=== PATIENT | male | born 1955 | race Caucasian/White ===

== ENCOUNTER 2017-04-27 06:49 | Observation (INO) | payer SELFPAY ==
[~2017-04-27] VITALS: Ht 193 cm; Wt 104.2 kg
[~2017-04-27 06:49] MED LIST: MULT-65 PO
[2017-04-27] MEDS ORDERED: SODIUM CHLORID 0.9% 500 ML IV PRN (07:30)
[2017-04-27] MEDS ORDERED: METOPROLOL TARTRATE 25 MG TAB PO PRN (07:30)
[2017-04-27] MEDS ORDERED: INSULIN HUMAN REGULAR 1,000 UNITS/10 ML VIAL SQ PRN (07:30)
[2017-04-27] MEDS ORDERED: LACTATED RINGER'S 1000 ML IV PRN (07:30)
[2017-04-27] MEDS ORDERED: CHLORHEXIDINE GLUCONATE 2 % 1 PACK (2 CLOTHS) TOPICAL PRN (07:30)
[2017-04-27] MEDS ORDERED: POVIDONE IODINE 5% (ANTISEPSIS KIT) 4 APPLICATIONS EACH NARE PRN (07:30)
[2017-04-27] MEDS ORDERED: ceFAZolin 2 GM PREMIX 50 ML IV SCH ×2 (07:30→20:00)
[2017-04-27] MEDS ORDERED: VANCOMYCIN 1000 MG/NS 250 ML (for <70 kg) IV SCH ×2 (07:30)
[2017-04-27] MEDS ORDERED: CHLORHEXIDINE GLUCONATE 4% SOLN 120 ML BTL TOPICAL SCH (07:30)
[2017-04-27] MEDS ORDERED: KETOROLAC TROMETHAMINE 60 MG/2 ML (IM) VIAL IM ONE (10:27)
[2017-04-27] MEDS ORDERED: NEOSTIGMINE 3 MG/3 ML SYR IV ONE (10:27)
[2017-04-27] MEDS ORDERED: ONDANSETRON HCL 4 MG/2 ML VIAL IV PUSH ONE (10:27)
[2017-04-27] MEDS ORDERED: LACTATED RINGER'S 1000 ML INJ 1,000 ML IV ONE (10:27)
[2017-04-27] MEDS ORDERED: MIDAZOLAM HCL 2 MG/2 ML VIAL IV ONE (10:27)
[2017-04-27] MEDS ORDERED: PROPOFOL 200 MG/20 ML AMP IV ONE (10:27)
[2017-04-27] MEDS ORDERED: GENTAMICIN SULFATE 80 MG/2 ML VIAL ONE (10:59)
[2017-04-27] MEDS ORDERED: ACETAMINOPHEN 1000 MG/100 ML 100 ML IV ONE (11:05)
[2017-04-27] MEDS ORDERED: LACTATED RINGER'S 1000 ML INJ 1,000 ML IV SCH (12:23)
[2017-04-27] MEDS ORDERED: HYDR-3366 PO (12:25)
--- NOTE | 2017-04-27 12:28 | PD.OP ---
cc: Harsha Lackey MD Operative Report Date of Surgery: Apr 27, 2017 Preoperative Diagnosis: Displaced left calcaneus fracture Postoperative Diagnosis: Procedure: Open reduction internal fixation left calcaneus Anesthesia: Gen. Surgeon: Harsha Lackey Senior Test Engineer(s): SHADI Esposito PA-C The surgical procedure was assisted by my physician assisted living assistant. My P.A. presence was necessary throughout this case for the manipulation and positioning of the surgical extremity. My P.A. was assisting me throughout the duration of this procedure. The skill set of a physician assisted living assistant was medically necessary to complete this procedure. During the surgical case the java tech was working at the back table and the physician assisted living assistant was directly assisting me. Operation and Findings: Informed consent obtained, operative site was marked. The foot and ankle were seen and evaluated this morning. Soft tissue swelling had significantly improved and appeared to be ready for surgery. He was brought to the operating room and placed on the operating room table. He was given intravenous sedation, general endotracheal anesthesia. He received IV antibiotics and was placed in the lateral decubitus position. Foot and leg were prepped with alcohol, followed by Hibiclens, draped in usual sterile fashion. A time out procedure was preformed. Procedure began with reduction of fracture. Multiple percutaneous incisions were made on each side of fracture. A pointed tenaculum was now placed percutaneously. 2 large pointed tenaculums were used to aid in reduction. The fracture was manipulated. Good reduction was achieved. A was unable to achieve complete anatomic reduction secondary to the delay in injury to surgery. Multiplanar fluoroscopy confirmed well aligned fracture. Additional small incisions were made proximal to the fracture. Guide pins for the [employer] 4.0 cannulated screws were placed across the fracture site from superior to inferior. 4 guidepins were placed. Fluoroscopy confirmed appropriate guidepin placement. Cannulated drill was placed over each of the guidepins. 4 cannulated screws were now placed. Good compression was obtained. Fracture tenaculums were removed. Fluoroscopy confirmed well aligned fracture with well- placed hardware. The skin and subcutaneous tissue closed with 3-0 nylon, in vertical mattress fashion. Sterile dressings were applied the patient was placed into a well molded padded splint. The patient was transferred to the Recovery Room in stable condition. Harsha Lackey MD Apr 27, 2017 12:28
[2017-04-27] MEDS ORDERED: Post-op Orders (for Pharmacy) MISC XX ONE (12:30)
[2017-04-27] MEDS ORDERED: ACETAMINOPHEN/HYDROcodone 325 MG/10 MG TAB PO PRN (12:30)
[2017-04-27] MEDS ORDERED: ONDANSETRON HCL 4 MG/2 ML VIAL IVP PRN (12:30)
[2017-04-27] MEDS ORDERED: diphenhydrAMINE HCL 25 MG CAP PO PRN ×2 (12:30)
[2017-04-27] MEDS ORDERED: SODIUM CHLORIDE 0.9% FLUSH 5 ML FLUSH IVF PRN (12:30)
[2017-04-27] MEDS ORDERED: NALOXONE HCL 0.4 MG/ML AMP IV PRN (12:30)
[2017-04-27] MEDS ORDERED: MORPHINE SULFATE 4 MG/ML INJ IV PUSH PRN (12:30)
[2017-04-27] MEDS ORDERED: DO NOT ADM ANY ANTICOAGULANT DRUGS PRN (12:48)
--- NOTE | 2017-04-27 13:47 | RADRPT ---
EXAM DATE/TIME: 04/27/2017 12:19 [facility] COMPARISON: No previous studies available for comparison. INDICATIONS : Left heel open reduction internal fixation. MEDICAL HISTORY : None. SURGICAL HISTORY : None. ENCOUNTER: Initial ACUITY: 1 day PAIN SCORE: Non-responsive. LOCATION: Left heel FINDINGS: Multiple pins are seen bridging the calcaneal fracture. Alignment is anatomic. CONCLUSION: Anatomic alignment.. Cr Teran MD FACR on April 27, 2017 at 13:45 Board Certified Radiologist. This report was verified electronically.
[2017-04-27 14:30] VITALS: BP 93/65; PULSE 85; RESP 18; TEMP 98; O2SAT 97
[2017-04-27] MEDS ORDERED: SODIUM CHLORIDE 0.9% FLUSH 5 ML FLUSH IVF SCH (21:00)
--- NOTE | 2017-04-27 21:11 | EKG ---
Date Performed: 04/27/2017 Time Performed: 07:26:45 PTAGE: 61 years EKG: SINUS TACHYCARDIA WITH OCCASIONAL SUPRAVENTRICULAR PREMATURE COMPLEXES PROBABLE INFERIOR MY OCARDIAL INFARCTION , PROBABLY OLD ABNORMAL ECG NO PREVIOUS TRACING DOCTOR: Natalie Mckenna Interpretating Date/Time 04/27/2017 21:09:17
== END 2017-04-27 14:02 | disposition home or self-care (01) ==
LOC: HSDC 06:49 → HSDI 12:25
PROVIDERS: ADMIT Orthopaedic Surgery Orthopaedic Trauma; ATTEND Orthopaedic Surgery Orthopaedic Trauma
DX: S92.002A Unspecified fracture of left calcaneus, initial encounter for closed fracture (principal); R94.31 Abnormal electrocardiogram [ECG] [EKG]
CPT/HCPCS: 01480; 28415; 73650; 76000; 93005; 97161; C1713; G0378; G8987; G8988; G8989; J0131; J0690; J1580; J1885; J2250; J2405; J2710; J3010; J3370; J7050; J7120